=== PATIENT | male | born 1945 | race Caucasian/White ===

== ENCOUNTER 2020-11-11 20:16 | Emergency (ER) | payer OTHER, SELFPAY ==
--- NOTE | ~2020-11-11 | XR_ITS ---
EXAMINATION: XR CHEST CLINICAL INFORMATION: Shortness of breath COMPARISON: Chest radiograph 11/18/2016 TECHNIQUE: Frontal view of the chest was obtained. FINDINGS: Lungs appear hyperexpanded suggesting COPD. There is more hyperlucent seen on the left suggesting worsening bullous changes. No focal consolidations or pleural effusions. No pneumothorax detected. Heart size normal. No evidence of CHF. Compared to the 11/18/2016 study, there has been no significant interval change. XR/XR chest 1V IMPRESSION: COPD. No acute intrathoracic disease
--- NOTE | 2020-11-11 07:44 | ECG_ITS ---
Test Reason : MEDICAL CLEARENCE Blood Pressure : / mmHG Vent. Rate : 097 BPM Atrial Rate : 097 BPM P-R Int : 172 ms QRS Dur : 128 ms QT Int : 382 ms P-R-T Axes : 054 -16 021 degrees QTc Int : 485 ms Normal sinus rhythm Right bundle branch block Abnormal ECG When compared with ECG of 11-NOV-2020 23:39, Right bundle branch block is now Present Minimal criteria for Anterior infarct are no longer Present Referred By: Emelina Reyes Electronically Signed By:DAVID MCMILLAN
[2020-11-11 20:13] VITALS: BP 140/73; PULSE 120; O2SAT 96
[2020-11-11 20:17] VITALS: BP 113/62; PULSE 98; RESP 16; TEMP 36.2; O2SAT 85; BMI 19.3
[2020-11-11 21:56] VITALS: BP 116/68; PULSE 94; RESP 18; TEMP 36.7; O2SAT 97
[2020-11-11 22:29] VITALS: BP 115/69; PULSE 88; RESP 16; O2SAT 94
--- NOTE | 2020-11-11 22:48 | ECG_ITS ---
Test Reason : MEDICAL CLEARENCE Blood Pressure : / mmHG Vent. Rate : 075 BPM Atrial Rate : 075 BPM P-R Int : 132 ms QRS Dur : 068 ms QT Int : 376 ms P-R-T Axes : 099 -02 -06 degrees QTc Int : 419 ms Poor data quality, interpretation may be adversely affected Sinus rhythm with marked sinus arrhythmia Cannot rule out Anterior infarct (cited on or before 11-NOV-2020) Abnormal ECG When compared with ECG of 18-NOV-2016 22:05, Previous ECG has undetermined rhythm, needs review Questionable change in QRS axis Non-specific change in ST segment in Anterior leads T wave inversion now evident in Inferior leads T wave inversion no longer evident in Anterior leads Referred By: Emelina Reyes Electronically Signed By:DAVID MCMILLAN
[2020-11-11 23:10] LABS: MANUAL DIFF FLAG NO
[2020-11-11 23:11] LABS: Basophils Absolute Auto 0.1 X10*3/uL (0.0-0.2); Basophils Percent Auto 0.9 % (0-2); Eosinophils Absolute Auto 0.1 X10*3/uL (0.0-0.4); Eosinophils Percent Auto 1.3 % (0-4); Hematocrit 38.1 % (42-52); Hemoglobin 13.1 g/dl (14.0-18.0); Imm Gran Abs Auto 0.02 X10*3/uL (0.00-0.03); Imm Gran Pct Auto 0.3 % (0.0-0.4); Lymphocytes Absolute Auto 0.8 X10*3/uL (1.2-4.9); Mean Corpuscular HGB Conc 34.4 g/dl (31.0-36.0); Mean Corpuscular Volume 93.2 fL (80-98); Mean Platelet Volume 9.9 fL (9.4-12.4); Monocytes Absolute Auto 0.5 X10*3/uL (0.1-1.2); Monocytes Percent Auto 6.7 % (2-11); Neutrophils Absolute Auto 6.1 X10*3/uL (2.0-8.3); Neutrophils Percent Auto 79.8 % (45-73); Platelet Count 304 X10*3/uL (160-400); Red Blood Count 4.09 X10*6/uL (4.60-5.80); Red Cell Distribution Width 14.9 % (11.0-16.0); White Blood Count 7.6 X10*3/uL (4.8-10.8)
--- NOTE | 2020-11-11 23:12 | ED.GENADULT ---
HPI - General Adult General Chief complaint: Extremity Injury, Lower Stated complaint: left sciatica pain Time Seen by Provider: 11/11/20 22:47 Source: patient Mode of arrival: other (Cane) History of Present Illness HPI narrative: 75-year-old gentleman with history of COPD presents with left worsening sciatica pain that he states radiates down the left posterior lower extremity without associated fever, chills, urinary pain/burning/frequency. Patient states that he is no more short of breath than usual and endorses that he has resumed smoking cigarettes and he has stopped taking his COPD medication. In addition he denies having had his COVID-19 vaccine. He states he is eating and drinking well and his last bowel movement was this morning and denies any urinary symptoms or chest pain. Related Data Allergies Allergy/AdvReac Type Severity Reaction Status Date / Time No Known Allergies Allergy Unverified 12/05/19 19:20 [No Known Allergies*] Review of Systems Review of Systems: Pertinent positives and negatives as stated in HPI 10 point review of systems is otherwise negative. [facility] Past Medical History Source: nursing notes reviewed Medical History COPD (chronic obstructive pulmonary disease) Degeneration of C5-C6 intervertebral disc Social History Social History Advance Directives: No Advance Directives Information Provided: Yes Physical Exam Vital Signs: Vital Signs: Last Vital Signs Temp 98.0 F 11/11/20 21:56 Pulse 81 11/12/20 04:00 Resp 16 11/12/20 04:00 BP 115/69 11/11/20 22:29 Pulse Ox 96 11/12/20 04:00 Body Mass Index 19.3 VITAL SIGNS: Reviewed. GENERAL: Chronically ill, cachectic,, in no acute distress. HEAD: Normocephalic/atraumatic EYES: PERRLA, EOMI OROPHARYNX: no oral lesions noted, posterior pharynx clear LUNGS: Normal breath sounds. No adventitious sounds or accessory muscle use. SpO2<94> on room air CARDIOVASCULAR: Regular rate and rhythm without noted murmurs, no JVD or lower extremity edema. ABDOMEN: Soft, non-tender, non-distended with bowel sounds. MUSCULOSKELETAL: No tenderness, deformities, or effusions noted on gross inspection. EXTREMITIES: No cyanosis, clubbing or edema. SKIN: Inspection of the skin reveals no rashes NEUROLOGIC: Alert and oriented x 4. Strength and sensation to light touch were grossly intact x 4. Course Course Course Narrative: 75-year-old male with history and clinical presentation consistent with sciatica, but will rule out urinary etiologies and although patient was noted to be transiently reading 85% on oxygenation on room air he he has had no further episodes of this and is noted to be non adherent to his treatment plan and states he has no interest in pursuing his medications. Review of all investigations negative for acute findings and on re-evaluation patient has had mild improvement his sciatica pain. All results discussed with him at bedside he will be discharged in the morning due to difficulties with finding a ride. Medical Decision Making Lab Data Result diagrams: 11/11/20 23:03 11/11/20 23:03 Labs: Lab Results 11/11/20 11/11/20 11/11/20 Range/Units 23:03 23:03 23:03 WBC 7.6 (4.8-10.8) X10*3/uL RBC 4.09 L (4.60-5.80) X10*6/uL Hgb 13.1 L (14.0-18.0) g/dl Hct 38.1 L (42-52) % MCV 93.2 (80-98) fL MCH 32.0 (27.0-33.0) pg MCHC 34.4 (31.0-36.0) g/dl RDW 14.9 (11.0-16.0) % Plt Count 304 (160-400) X10*3/uL MPV 9.9 (9.4-12.4) fL Immature Gran % (Auto) 0.3 (0.0-0.4) % Neut % (Auto) 79.8 H (45-73) % Lymph % (Auto) 11.0 L (20-40) % [place] % (Auto) 6.7 (2-11) % Eos % (Auto) 1.3 (0-4) % Baso % (Auto) 0.9 (0-2) % Lymph # (Auto) 0.8 L (1.2-4.9) X10*3/uL [place] # (Auto) 0.5 (0.1-1.2) X10*3/uL Eos # (Auto) 0.1 (0.0-0.4) X10*3/uL Baso # (Auto) 0.1 (0.0-0.2) X10*3/uL Abs Immat Gran (auto) 0.02 (0.00-0.03) X10*3/uL Absolute Neuts (auto) 6.1 (2.0-8.3) X10*3/uL Absolute Nucleated RBC 0.000 (0.0-0.012) X10*3/uL Nucleated RBC % (auto) 0.0 (0.0-0.2) /100WBC PT 11.5 (9.9-13.0) SEC INR 1.0 (0.9-1.1) VBG pH (7.32-7.43) VBG pCO2 mmHg VBG pO2 mmHg VBG HCO3 (22-26) mmol/L VBG O2 Saturation % VBG Base Excess mmol/L Sodium 142 (135-145) mmol/L Potassium 5.0 (3.3-5.1) mmol/L Chloride 107 (96-108) mmol/L Carbon Dioxide 23 (22-29) mmol/L Anion Gap 17 (12-20) BUN 21 H (9-16) mg/dL Creatinine 1.13 (0.5-1.4) mg/dL Estim Creat Clear Calc 44.1 Estimated GFR > 60 Random Glucose 106 (60-115) mg/dL Calcium 9.1 (8.4-10.2) mg/dL Total Bilirubin 0.5 (0.0-1.0) mg/dL AST 33 (5-37) U/L ALT 23 (0-40) U/L Alkaline Phosphatase 54 (39-117) U/L Troponin I High Sens (<3.5-35.0) ng/L Total Protein 6.6 (6.5-8.0) g/dL Albumin 3.9 (3.5-5.0) g/dL Lipase 59 (8-78) U/L COVID-19 (YOSHI) (Negative) COVID-19 Clin Com 11/11/20 11/11/20 11/12/20 Range/Units 23:03 23:09 00:55 WBC (4.8-10.8) X10*3/uL RBC (4.60-5.80) X10*6/uL Hgb (14.0-18.0) g/dl Hct (42-52) % MCV (80-98) fL MCH (27.0-33.0) pg MCHC (31.0-36.0) g/dl RDW (11.0-16.0) % Plt Count (160-400) X10*3/uL MPV (9.4-12.4) fL Immature Gran % (Auto) (0.0-0.4) % Neut % (Auto) (45-73) % Lymph % (Auto) (20-40) % [place] % (Auto) (2-11) % Eos % (Auto) (0-4) % Baso % (Auto) (0-2) % Lymph # (Auto) (1.2-4.9) X10*3/uL [place] # (Auto) (0.1-1.2) X10*3/uL Eos # (Auto) (0.0-0.4) X10*3/uL Baso # (Auto) (0.0-0.2) X10*3/uL Abs Immat Gran (auto) (0.00-0.03) X10*3/uL Absolute Neuts (auto) (2.0-8.3) X10*3/uL Absolute Nucleated RBC (0.0-0.012) X10*3/uL Nucleated RBC % (auto) (0.0-0.2) /100WBC PT (9.9-13.0) SEC INR (0.9-1.1) VBG pH 7.46 H (7.32-7.43) VBG pCO2 39 mmHg VBG pO2 59 mmHg VBG HCO3 27 H (22-26) mmol/L VBG O2 Saturation 86.0 % VBG Base Excess 4.0 mmol/L Sodium (135-145) mmol/L Potassium (3.3-5.1) mmol/L Chloride (96-108) mmol/L Carbon Dioxide (22-29) mmol/L Anion Gap (12-20) BUN (9-16) mg/dL Creatinine (0.5-1.4) mg/dL Estim Creat Clear Calc Estimated GFR Random Glucose (60-115) mg/dL Calcium (8.4-10.2) mg/dL Total Bilirubin (0.0-1.0) mg/dL AST (5-37) U/L ALT (0-40) U/L Alkaline Phosphatase (39-117) U/L Troponin I High Sens 3.6 (<3.5-35.0) ng/L Total Protein (6.5-8.0) g/dL Albumin (3.5-5.0) g/dL Lipase (8-78) U/L COVID-19 (YOSHI) Negative (Negative) COVID-19 Clin Com See Note ECG Data Attestation: I personally reviewed and interpreted this ECG as follows: Prior ECG tracings: available for review (11/18/2016) Interpretation: Poor data quality, sinus rhythm, HR-75, NE/QRS/QTC are within normal limits, no STEMI. Discharge Plan Discharge Clinical Impression: Sciatica Patient Disposition: Home, Self-Care Instructions: Sciatica (ED) Additional Instructions: 1. Resume all home medications as prescribed. 2. Tylenol 1000 mg, orally, every 6 hours as needed for pain control. 3. Ibuprofen 400 mg, orally with milk or food, every 6 hours as needed for pain control. Recommend taking this medication with Tylenol for additional symptom relief. 4. Lidocaine patch, these are available [id number] at every [facility], apply to area of maximal tenderness as directed on the outside packaging. 5. Follow-up with your primary care provider in the next 1-2 days for re-evaluation further outpatient management. Return to the ER for acute worsening of symptoms. Referrals: Physician,Unknown [Primary Care Provider] - 2 days
[2020-11-11 23:13] LABS: VBG HCO3 27 mmol/L (22-26); VBG pCO2 39 mmHg; VBG pH 7.46 (7.32-7.43); VBG pO2 59 mmHg
[2020-11-11 23:13] LABS: Venous Blood Gas Refer to POC result
[2020-11-11 23:16] LABS: Prothrombin Time 11.5 SEC (9.9-13.0)
[2020-11-11] MEDS: Acetaminophen 325 MG TABLET 975 MG PO (23:22)
[2020-11-11] MEDS: Lidocaine 4 % Patch ADH..PATCH 1 PATCH TRANSDERMA (23:23)
[2020-11-11 23:37] LABS: Alanine Aminotransferase 23 U/L (0-40); Albumin Level 3.9 g/dL (3.5-5.0); Alkaline Phosphatase 54 U/L (39-117); Anion Gap 17 (12-20); Aspartate Amino Transferase 33 U/L (5-37); Bilirubin Total 0.5 mg/dL (0.0-1.0); Blood Urea Nitrogen 21 mg/dL (9-16); Calcium 9.1 mg/dL (8.4-10.2); Carbon Dioxide 23 mmol/L (22-29); Chloride 107 mmol/L (96-108); Creatinine Clr Calc Pharmacy 44.1; Estimated Glomerular Filt Rate > 60; Glucose Random 106 mg/dL (60-115); Lipase 59 U/L (8-78); Sodium 142 mmol/L (135-145); Total Protein 6.6 g/dL (6.5-8.0)
[2020-11-11 23:39] LABS: Troponin-I High Sensitivity 3.6 ng/L (<3.5-35.0)
[2020-11-12 01:19] LABS: COVID-19 Test Negative (Negative); IDNOW Serial# 9DD0AD1C
[2020-11-12 04:00] VITALS: PULSE 81; RESP 16; O2SAT 96
[2020-11-12] MEDS: Acetaminophen 325 MG TABLET 650 MG PO (04:42)
--- NOTE | 2020-11-12 06:27 | PC.NURSE ---
PT HELD IN THE ED OVER NIGHT D/T NOT HAVING A RIDE HOME, AND NO MED NECESSITY FOR AN AMBULANCE. AT APPROX 6AM RN TO BEDSIDE TO DISCUSS RIDE HOME. RN ATTEMPTED TO ASSIST W/PT OBTAINING A RIDE, AND PT STATES I DONT NEED SHIT FROM YOU, THIS PLACE SUCKS THIS RN ATTEMPTED TO SEE WHAT ADDITIONAL NEEDS WE CAN MEET BUT PT REFUSED TO RESPOND.
== END 2020-11-12 06:37 | disposition home or self-care (01) ==
PROVIDERS: Emergency Provider Student in an Organized Health Care Education/Training Program
DX: M54.42 Lumbago with sciatica, left side (principal); J44.9 Chronic obstructive pulmonary disease, unspecified; Z20.822 Contact with and (suspected) exposure to COVID-19; Z79.899 Other long term (current) drug therapy
CPT/HCPCS: 36415; 71045; 80053; 82803; 83690; 84484; 85025; 85610; 87635; 93005; 99284

== ENCOUNTER 2021-01-02 15:08 | Emergency (ER) | payer MEDICARE, OTHER, SELFPAY ==
--- NOTE | ~2021-01-02 | CT_ITS ---
EXAMINATION: CT HEAD WITHOUT CONTRAST CLINICAL INFORMATION: History of trauma, brick fell on head. COMPARISON: CT of the head done on 08/20/2018. TECHNIQUE: Contiguous axial imaging was performed from the skull base to vertex without intravenous administration of contrast. This CT examination was performed using dose optimization techniques as appropriate, variously including the following: *Automated exposure control *Adjustment of mA and/or kV according to patient size (this includes techniques or standardized protocols for targeted exams where dose is matched to indication/reason for exam; i.e. extremities or head) *Use of iterative reconstruction technique DLP: 730.2 mGy-cm FINDINGS: There is no evidence of acute intracranial hemorrhage or territorial infarction. No abnormal mass effect or midline shift is seen. [place] to white matter differentiation is well preserved. No extra-axial fluid collections are identified. Persistent stable mild ventriculomegaly is present, unchanged since 08/20/2018. There is mild subcortical and deep periventricular white matter hypodensity present, most consistent with chronic microvascular deep white matter ischemia. The osseous structures and soft tissues are normal. The mastoid air cells and visualized portions of the paranasal sinuses are well aerated. CT/CT head/brain wo con IMPRESSION: No acute intracranial pathology. No significant change since 08/20/2018.
[2021-01-02 15:15] VITALS: BP 118/78; PULSE 132; O2SAT 93
[2021-01-02 15:20] VITALS: BP 138/78; PULSE 102; RESP 18; TEMP 36.9; O2SAT 93; BMI 19.1
[2021-01-02] MEDS: Diphth,Pertus(ACell),Tet Adult 0.5 ML SYRINGE IM (16:07)
--- NOTE | 2021-01-02 16:26 | ED_ITS ---
HPI - Head Injury General Chief complaint: Head Injury Stated complaint: head lac, brick fell on head Time Seen by Provider: 01/02/21 15:23 Source: patient and EMS Mode of arrival: EMS History of Present Illness HPI Narrative: 75-year-old male with a past medical history COPD, degenerative disc disease, presenting to the ED complaining of laceration to posterior scalp s/p brick falling off a building and heading in and head [employer]. Takes ASA occasionally, denies taking today. Denies LOC, headache, nausea, vomiting, numbness, tingling, weakness, vision changes. Tetanus unknown MD Complaint: head injury Related Data Allergies Allergy/AdvReac Type Severity Reaction Status Date / Time No Known Allergies Allergy Unverified 12/05/19 19:20 [No Known Allergies*] Review of Systems Review of Systems: Constitutional: No Fever, No Chills ENT/Mouth: No Ear Pain, No Nasal Congestion, No sore throat, No Rhinorrhea, No Swallowing Difficulty Cardiovascular: No Chest Pain, No SOB Respiratory: No Cough, No Wheezing Gastrointestinal: No Nausea, No Vomiting, No Diarrhea, No Constipation, No Abdominal pain Genitourinary: No Dysuria, No Urinary Frequency, No Hematuria, No Urgency, No Flank Pain Musculoskeletal: No joint pain, No Myalgias, No Joint Swelling Skin: + Skin Lesions, No rash Neuro: No Weakness, No Numbness, No Paresthesias Yes all other systems are reviewed and are negative Neurologic: Denies Abnormal speech present and Denies Sensory deficit (Neuro) [facility] Past Medical History Attestation statement: The following information was validated with the patient. Medical History COPD (chronic obstructive pulmonary disease) Degeneration of C5-C6 intervertebral disc Social History Social History Advance Directives: No Advance Directives Information Provided: No Physical Exam Vital Signs: Vital Signs: Last Vital Signs Temp 98.4 F 01/02/21 15:20 Pulse 102 H 01/02/21 15:20 Resp 18 01/02/21 15:20 BP 138/78 01/02/21 15:20 Pulse Ox 93 01/02/21 15:20 Body Mass Index 19.1 Const: General: cooperative, healthy appearing and no acute distress Orientation/consciousness: patient oriented x3 Limitations: no limitations HENMT: Other: 2 cm flap laceration noted to posterior scalp. Bleeding controlled. No evidence of skull depression Head: No Ponce's sign and No raccoon eyes Ears: hearing grossly normal bilaterally General nose exam: Normal external nose present Face and sinus: Yes normal facial exam Eyes: General: appearance normal, both eyes and all related structures EOM: EOMs intact bilaterally Neck: Other: No midline cervical spinous tenderness Neck: Yes normal visual inspection and Yes no meningeal signs Resp: Effort & Inspection: normal respiratory effort and no respiratory distress Cardio: Rate: regular rate Heart sounds: S1 normal heart sound present and S2 normal heart sound present GI: Inspection: Yes normal to inspection Palpation (GI): Soft to palpation, nontender and no guarding Skin: Rashes: no rashes Neuro: General: patient oriented x3, gait normal, tone normal, moves all extr emities, no meningeal signs, no focal motor deficits and CN's II-XI intact bilaterally Cranial nerves: Yes CN's II-XII intact bilaterally Cognition (Neuro): normal cognition Speech: No Abnormal speech present Gait exam (Neuro): Normal gait present Motor exam (neuro): 5/5 motor strength present throughout Sensory Exam: No Sensory deficit (Neuro) Coordination: [id number] test normal Romberg Test: Negative Extrem: General: Yes normal to inspection Course Course Course Narrative: CT head/brain wo con IMPRESSION: No acute intracranial pathology. No significant change since 08/20/2018. > results discussed with patient including recent signs and symptoms and strict return precautions -Laceration repaired with 3 candie MDM - Head Injury MDM Narrative Medical decision making narrative: 75-year-old male with a past medical history COPD, degenerative disc disease, presenting to the ED complaining of laceration to posterior scalp s/p brick falling off a building and heading in and head [employer]. On exam mildly tachycardic, NAD/well-appearing, no focal neuro deficits. Laceration noted to posterior scalp. Concern for ICH. Rule out fracture. Plan: Head CT, update tetanus, repair laceration Medical Records Attestation: I reviewed the patient's medical records. Lab Data Attestation: I reviewed the patient's lab results. Procedures Laceration Laceration 1: Site: scalp Side (If applicable): left Size (cm): 2 Description: flap Depth: simple, single layer Number of sutures: 3 (candie) Discharge Plan Discharge Clinical Impression: Closed head injury Qualifiers: Encounter type: initial encounter Qualified Code(s): S09.90XA - Unspecified injury of head, initial encounter Laceration of scalp Qualifiers: Encounter type: initial encounter Qualified Code(s): S01.01XA - Laceration without foreign body of scalp, initial encounter Patient Disposition: Home, Self-Care Instructions: Laceration (ED), Head Injury (ED) Additional Instructions: Your head CT was unremarkable You have candie in her head, return to any emergency department or urgent care in 7-10 days to have them taken out Keep dry and clean, do not scrub, your tetanus was updated today If the area begins look infected, is red, there is drainage please return to the ED Referrals: Physician,Clemente J [Primary Care Provider] - 1 week (Return to any emergency department or urgent care in 7-10 days to have your candie taken out)
== END 2021-01-02 16:45 | disposition home or self-care (01) ==
PROVIDERS: Emergency Provider Emergency Medicine
DX: S01.01XA Laceration without foreign body of scalp, initial encounter (principal); J44.9 Chronic obstructive pulmonary disease, unspecified; W20.8XXA Other cause of strike by thrown, projected or falling object, initial encounter; Y93.9 Activity, unspecified; Y92.410 Unspecified street and highway as the place of occurrence of the external cause; Y99.9 Unspecified external cause status
CPT/HCPCS: 12001; 70450; 90471; 90715; 99283; 99284

== ENCOUNTER 2022-06-15 11:50 | Outpatient (REF) | payer MEDICARE, MEDICAID, OTHER, SELFPAY ==
[2022-06-15 13:07] LABS: OBS Int Ctl Valid YES; OBS1 NEGATIVE (NEGATIVE)
== END 2022-06-15 11:51 | disposition home or self-care (01) ==
LOC: HO.HSH2W 11:50
PROVIDERS: Visit Provider Internal Medicine
DX: D64.9 Anemia, unspecified (principal)
CPT/HCPCS: 82272

== ENCOUNTER 2022-06-16 07:00 | Outpatient (REF) | payer MEDICARE, MEDICAID, OTHER, SELFPAY ==
[2022-06-16 08:32] LABS: MANUAL DIFF FLAG NO
[2022-06-16 08:33] LABS: Basophils Absolute Auto 0.1 X10*3/uL (0.0-0.2); Basophils Percent Auto 1.4 % (0-2); Eosinophils Absolute Auto 0.3 X10*3/uL (0.0-0.4); Hematocrit 35.7 % (42.0-52.0); Imm Gran Abs Auto 0.01 X10*3/uL (0.00-0.03); Imm Gran Pct Auto 0.2 % (0.0-0.4); Lymphocytes Percent Auto 15.3 % (20-40); Mean Corpuscular HGB Conc 33.6 g/dl (31.0-36.0); Mean Corpuscular Hemoglobin 29.5 pg (27.0-33.0); Mean Corpuscular Volume 87.7 fL (80.0-98.0); Mean Platelet Volume 10.6 fL (9.4-12.4); Monocytes Absolute Auto 0.5 X10*3/uL (0.1-1.2); Monocytes Percent Auto 7.6 % (2-11); Neutrophils Absolute Auto 4.6 x10*3/uL (2.0-8.3); Neutrophils Percent Auto 71.5 % (45-73); Platelet Count 278 X10*3/uL (160-400); Red Blood Count 4.07 X10*6/uL (4.60-5.80); White Blood Count 6.4 X10*3/uL (4.8-10.8)
[2022-06-16 09:05] LABS: Alanine Aminotransferase 10 U/L (0-40); Albumin Level 3.7 g/dL (3.5-5.0); Alkaline Phosphatase 47 U/L (39-117); Anion Gap 11 (12-20); Aspartate Amino Transferase 14 U/L (5-37); Bilirubin Total 0.4 mg/dL (0.0-1.0); Blood Urea Nitrogen 19 mg/dL (9-16); Calcium 8.5 mg/dL (8.4-10.2); Carbon Dioxide 24 mmol/L (22-29); Chloride 109 mmol/L (96-108); Estimated Glomerular Filt Rate > 60; Glucose Fasting 81 mg/dL (60-99); Iron 56 mcg/dL (45-160); Percent Iron Saturation 22 % (15-50); Potassium 4.3 mmol/L (3.3-5.1); Sodium 140 mmol/L (135-145); Total Iron Binding Capacity 250 mcg/dL (228-428); Unsaturated Iron Binding 194 ug/dL
[2022-06-16 09:35] LABS: Ferritin 69 ng/mL (20-250); Folate 11.8 ng/mL (> or = 4.0); Thyroid Stimulating Hormone 1.35 uIU/mL (0.32-4.0); Vitamin B12 376 pg/mL (200-900)
[2022-06-19 05:08] LABS: TS Negative Control Passed; TS Panel A 0; TS Panel B 0; TS Positive Control Passed; TSpotTB Negative (Negative)
== END 2022-06-16 07:01 | disposition home or self-care (01) ==
LOC: HO.HSH2W 07:00
PROVIDERS: Visit Provider Internal Medicine
DX: J44.9 Chronic obstructive pulmonary disease, unspecified (principal); D64.9 Anemia, unspecified; E46 Unspecified protein-calorie malnutrition
CPT/HCPCS: 36415; 80053; 82607; 82728; 82746; 83540; 84443; 85025; 86481

== ENCOUNTER 2022-06-17 05:32 | Outpatient (REF) | payer MEDICARE, MEDICAID, OTHER, SELFPAY ==
[2022-06-17 11:33] LABS: Cortisol Random 15.3 ug/dL
== END 2022-06-17 05:33 | disposition home or self-care (01) ==
LOC: HO.HSH2W 05:32
PROVIDERS: Visit Provider Internal Medicine
DX: I95.1 Orthostatic hypotension (principal)
CPT/HCPCS: 36415; 82533

== ENCOUNTER 2022-08-22 06:31 | Outpatient (REF) | payer MEDICARE, MEDICAID, OTHER, SELFPAY ==
[2022-08-22 06:36] LABS: MANUAL DIFF FLAG NO
[2022-08-22 07:03] LABS: Iron 76 mcg/dL (45-160); Percent Iron Saturation 32 % (15-50); Total Iron Binding Capacity 240 mcg/dL (228-428); Unsaturated Iron Binding 164 ug/dL
[2022-08-22 07:12] LABS: Basophils Absolute Auto 0.1 X10*3/uL (0.0-0.2); Basophils Percent Auto 1.2 % (0-2); Eosinophils Absolute Auto 0.2 X10*3/uL (0.0-0.4); Eosinophils Percent Auto 3.8 % (0-4); Hematocrit 35.5 % (42.0-52.0); Hemoglobin 11.9 g/dl (14.0-18.0); Imm Gran Abs Auto 0.02 X10*3/uL (0.00-0.03); Imm Gran Pct Auto 0.3 % (0.0-0.4); Lymphocytes Absolute Auto 1.1 X10*3/uL (1.2-4.9); Lymphocytes Percent Auto 17.6 % (20-40); Mean Corpuscular HGB Conc 33.5 g/dl (31.0-36.0); Mean Corpuscular Hemoglobin 29.2 pg (27.0-33.0); Mean Corpuscular Volume 87.2 fL (80.0-98.0); Mean Platelet Volume 10.3 fL (9.4-12.4); Monocytes Absolute Auto 0.5 X10*3/uL (0.1-1.2); Monocytes Percent Auto 7.9 % (2-11); Neutrophils Absolute Auto 4.1 x10*3/uL (2.0-8.3); Neutrophils Percent Auto 69.2 % (45-73); Platelet Count 302 X10*3/uL (160-400); Red Blood Count 4.07 X10*6/uL (4.60-5.80); Red Cell Distribution Width 13.9 % (11.0-16.0)
[2022-08-22 17:33] LABS: OBS Int Ctl Valid YES; OBS1 NEGATIVE (NEGATIVE)
== END 2022-08-22 06:32 | disposition home or self-care (01) ==
LOC: HO.HSH2W 06:31
PROVIDERS: Visit Provider Internal Medicine
DX: D64.9 Anemia, unspecified (principal)
CPT/HCPCS: 36415; 82272; 83540; 85025

== ENCOUNTER 2022-08-29 14:03 | Outpatient (REF) | payer MEDICARE, MEDICAID, OTHER, SELFPAY ==
[2022-08-29 14:22] LABS: OBS Int Ctl Valid YES; OBS1 NEGATIVE (NEGATIVE)
== END 2022-08-29 14:04 | disposition home or self-care (01) ==
LOC: HO.HSH2W 14:03
PROVIDERS: Visit Provider Internal Medicine
DX: D64.9 Anemia, unspecified (principal)
CPT/HCPCS: 82272

== ENCOUNTER 2022-09-02 05:52 | Outpatient (REF) | payer MEDICARE, MEDICAID, OTHER, SELFPAY ==
[2022-09-02 06:55] LABS: MANUAL DIFF FLAG NO
[2022-09-02 06:56] LABS: Basophils Absolute Auto 0.1 X10*3/uL (0.0-0.2); Basophils Percent Auto 1.2 % (0-2); Eosinophils Absolute Auto 0.2 X10*3/uL (0.0-0.4); Eosinophils Percent Auto 3.6 % (0-4); Hematocrit 33.7 % (42.0-52.0); Hemoglobin 11.5 g/dl (14.0-18.0); Imm Gran Abs Auto 0.01 X10*3/uL (0.00-0.03); Imm Gran Pct Auto 0.2 % (0.0-0.4); Lymphocytes Percent Auto 16.9 % (20-40); Mean Corpuscular HGB Conc 34.1 g/dl (31.0-36.0); Mean Corpuscular Hemoglobin 29.7 pg (27.0-33.0); Mean Corpuscular Volume 87.1 fL (80.0-98.0); Mean Platelet Volume 10.3 fL (9.4-12.4); Monocytes Absolute Auto 0.5 X10*3/uL (0.1-1.2); Neutrophils Absolute Auto 4.2 x10*3/uL (2.0-8.3); Neutrophils Percent Auto 70.1 % (45-73); Platelet Count 268 X10*3/uL (160-400); Red Blood Count 3.87 X10*6/uL (4.60-5.80); Red Cell Distribution Width 14.1 % (11.0-16.0)
== END 2022-09-02 05:53 | disposition home or self-care (01) ==
LOC: HO.HSH2W 05:52
PROVIDERS: Visit Provider Internal Medicine
DX: D64.9 Anemia, unspecified (principal)
CPT/HCPCS: 36415; 85025

== ENCOUNTER 2023-02-07 05:07 | Outpatient (REF) | payer MEDICARE, MEDICAID, OTHER, SELFPAY ==
[2023-02-07 06:25] LABS: MANUAL DIFF FLAG NO
[2023-02-07 06:44] LABS: Alanine Aminotransferase 12 U/L (0-40); Albumin Level 3.6 g/dL (3.5-5.0); Alkaline Phosphatase 56 U/L (39-117); Anion Gap 10 (12-20); Aspartate Amino Transferase 15 U/L (5-37); Basophils Absolute Auto 0.1 X10*3/uL (0.0-0.2); Basophils Percent Auto 1.3 % (0-2); Bilirubin Total 0.3 mg/dL (0.0-1.0); Blood Urea Nitrogen 18 mg/dL (9-16); Calcium 8.7 mg/dL (8.4-10.2); Carbon Dioxide 24 mmol/L (22-29); Chloride 109 mmol/L (96-108); Eosinophils Absolute Auto 0.2 X10*3/uL (0.0-0.4); Eosinophils Percent Auto 3.1 % (0-4); Estimated Glomerular Filt Rate > 60; Glucose Fasting 79 mg/dL (60-99); Hematocrit 33.6 % (42.0-52.0); Hemoglobin 11.2 g/dl (14.0-18.0); Imm Gran Abs Auto 0.03 X10*3/uL (0.00-0.03); Imm Gran Pct Auto 0.5 % (0.0-0.4); Lymphocytes Percent Auto 15.9 % (20-40); Mean Corpuscular HGB Conc 33.3 g/dl (31.0-36.0); Mean Corpuscular Hemoglobin 29.5 pg (27.0-33.0); Mean Corpuscular Volume 88.4 fL (80.0-98.0); Mean Platelet Volume 10.5 fL (9.4-12.4); Monocytes Absolute Auto 0.4 X10*3/uL (0.1-1.2); Monocytes Percent Auto 7.1 % (2-11); Neutrophils Absolute Auto 4.5 x10*3/uL (2.0-8.3); Neutrophils Percent Auto 72.1 % (45-73); Platelet Count 290 X10*3/uL (160-400); Red Cell Distribution Width 13.8 % (11.0-16.0); Sodium 139 mmol/L (135-145); Total Protein 6.4 g/dL (6.5-8.0); White Blood Count 6.2 X10*3/uL (4.8-10.8)
== END 2023-02-07 05:08 | disposition home or self-care (01) ==
LOC: HO.HSH2W 05:07
PROVIDERS: Visit Provider Internal Medicine
DX: J44.9 Chronic obstructive pulmonary disease, unspecified (principal); D64.9 Anemia, unspecified; H26.9 Unspecified cataract
CPT/HCPCS: 36415; 80053; 85025

== ENCOUNTER 2023-04-06 04:57 | Outpatient (REF) | payer MEDICARE, MEDICAID, SELFPAY ==
[2023-04-06 05:45] LABS: MANUAL DIFF FLAG NO
[2023-04-06 05:50] LABS: Basophils Absolute Auto 0.1 X10*3/uL (0.0-0.2); Basophils Percent Auto 1.2 % (0-2); Eosinophils Absolute Auto 0.3 X10*3/uL (0.0-0.4); Eosinophils Percent Auto 3.9 % (0-4); Hematocrit 33.4 % (42.0-52.0); Hemoglobin 11.3 g/dl (14.0-18.0); Imm Gran Abs Auto 0.03 X10*3/uL (0.00-0.03); Imm Gran Pct Auto 0.5 % (0.0-0.4); Lymphocytes Absolute Auto 1.3 X10*3/uL (1.2-4.9); Lymphocytes Percent Auto 19.4 % (20-40); Mean Corpuscular HGB Conc 33.8 g/dl (31.0-36.0); Mean Corpuscular Hemoglobin 29.7 pg (27.0-33.0); Mean Corpuscular Volume 87.9 fL (80.0-98.0); Mean Platelet Volume 10.3 fL (9.4-12.4); Monocytes Absolute Auto 0.5 X10*3/uL (0.1-1.2); Monocytes Percent Auto 7.8 % (2-11); Neutrophils Absolute Auto 4.3 x10*3/uL (2.0-8.3); Neutrophils Percent Auto 67.2 % (45-73); Platelet Count 273 X10*3/uL (160-400); Red Cell Distribution Width 14.6 % (11.0-16.0); White Blood Count 6.4 X10*3/uL (4.8-10.8)
== END 2023-04-06 04:58 | disposition home or self-care (01) ==
LOC: HO.HSH2W 04:57
PROVIDERS: Visit Provider Internal Medicine
DX: D64.9 Anemia, unspecified (principal); I95.9 Hypotension, unspecified
CPT/HCPCS: 36415; 85025

== ENCOUNTER 2023-08-11 05:18 | Outpatient (REF) | payer MEDICARE, MEDICAID, SELFPAY ==
[2023-08-11 06:09] LABS: MANUAL DIFF FLAG NO
[2023-08-11 06:19] LABS: Basophils Absolute Auto 0.1 X10*3/uL (0.0-0.2); Basophils Percent Auto 1.8 % (0-2); Eosinophils Absolute Auto 0.3 X10*3/uL (0.0-0.4); Eosinophils Percent Auto 4.6 % (0-4); Hematocrit 37.8 % (42.0-52.0); Hemoglobin 12.5 g/dl (14.0-18.0); Imm Gran Abs Auto 0.03 X10*3/uL (0.00-0.03); Imm Gran Pct Auto 0.4 % (0.0-0.4); Immature Retic Fraction 14.4 % (2.3-13.4); Lymphocytes Absolute Auto 1.2 X10*3/uL (1.2-4.9); Lymphocytes Percent Auto 17.4 % (20-40); Mean Corpuscular HGB Conc 33.1 g/dl (31.0-36.0); Mean Corpuscular Hemoglobin 29.6 pg (27.0-33.0); Mean Corpuscular Volume 89.6 fL (80.0-98.0); Mean Platelet Volume 10.4 fL (9.4-12.4); Monocytes Absolute Auto 0.5 X10*3/uL (0.1-1.2); Monocytes Percent Auto 6.7 % (2-11); Neutrophils Absolute Auto 4.6 x10*3/uL (2.0-8.3); Neutrophils Percent Auto 69.1 % (45-73); Platelet Count 314 X10*3/uL (160-400); Red Blood Count 4.22 X10*6/uL (4.60-5.80); Red Cell Distribution Width 13.9 % (11.0-16.0); Retic HGB Equivalent 32.6 pg (30.0-35.0); Reticulocyte Percent 1.6 % (0.5-1.8); Reticulocytes Absolute 0.068 X10*6/uL (0.026-0.095); White Blood Count 6.7 X10*3/uL (4.8-10.8)
[2023-08-11 06:36] LABS: Iron 54 mcg/dL (45-160); Percent Iron Saturation 21 % (15-50); Total Iron Binding Capacity 258 mcg/dL (228-428); Unsaturated Iron Binding 204 ug/dL
[2023-08-11 06:51] LABS: Ferritin 124 ng/mL (20-250)
[2023-08-11 07:04] LABS: Folate 9.9 ng/mL (> or = 4.0)
[2023-08-16 15:03] LABS: Transglutaminase IgA <1.0 U/mL
== END 2023-08-11 05:19 | disposition home or self-care (01) ==
LOC: HO.HSH2W 05:18
PROVIDERS: Visit Provider Internal Medicine
DX: R63.4 Abnormal weight loss (principal); R19.7 Diarrhea, unspecified; D64.9 Anemia, unspecified
CPT/HCPCS: 36415; 82728; 82746; 83540; 85025; 85045; 86364

== ENCOUNTER 2023-11-10 06:36 | Outpatient (REF) | payer MEDICARE, MEDICAID, SELFPAY ==
[2023-11-10 06:39] LABS: MANUAL DIFF FLAG NO
[2023-11-10 07:13] LABS: Basophils Percent Auto 0.7 % (0-2); Eosinophils Percent Auto 0.5 % (0-4); Hematocrit 35.7 % (42.0-52.0); Hemoglobin 12.1 g/dl (14.0-18.0); Imm Gran Abs Auto 0.02 X10*3/uL (0.00-0.03); Imm Gran Pct Auto 0.4 % (0.0-0.4); Lymphocytes Absolute Auto 0.8 X10*3/uL (1.2-4.9); Lymphocytes Percent Auto 14.8 % (20-40); Mean Corpuscular HGB Conc 33.9 g/dl (31.0-36.0); Mean Corpuscular Hemoglobin 29.6 pg (27.0-33.0); Mean Corpuscular Volume 87.3 fL (80.0-98.0); Mean Platelet Volume 10.4 fL (9.4-12.4); Monocytes Absolute Auto 0.8 X10*3/uL (0.1-1.2); Monocytes Percent Auto 14.5 % (2-11); Neutrophils Absolute Auto 3.9 x10*3/uL (2.0-8.3); Neutrophils Percent Auto 69.1 % (45-73); Platelet Count 239 X10*3/uL (160-400); Red Blood Count 4.09 X10*6/uL (4.60-5.80); White Blood Count 5.6 X10*3/uL (4.8-10.8)
[2023-11-10 07:45] LABS: Anion Gap 12 (12-20); Blood Urea Nitrogen 16 mg/dL (9-16); Calcium 8.9 mg/dL (8.4-10.2); Carbon Dioxide 23 mmol/L (22-29); Chloride 108 mmol/L (96-108); Estimated Glomerular Filt Rate > 60; Glucose Random 86 mg/dL (60-115); Potassium 3.9 mmol/L (3.3-5.1); Sodium 139 mmol/L (135-145)
== END 2023-11-10 06:37 | disposition home or self-care (01) ==
LOC: HO.HSH2W 06:36
PROVIDERS: Visit Provider Internal Medicine Interventional Cardiology
DX: U07.1 COVID-19 (principal)
CPT/HCPCS: 36415; 80048; 85025

== ENCOUNTER 2025-02-28 07:40 | Outpatient (REF) | payer MEDICARE, SELFPAY ==
[2025-02-28 07:47] LABS: Hematocrit 36.3 % (42.0-52.0); Hemoglobin 12.1 g/dl (14.0-18.0); Imm Gran Abs Auto 0.03 X10*3/uL (0.00-0.03); Imm Gran Pct Auto 0.6 % (0.0-0.4); Lymphocytes Absolute Auto 0.8 X10*3/uL (1.2-4.9); MANUAL DIFF FLAG NO; Mean Corpuscular HGB Conc 33.3 g/dl (31.0-36.0); Mean Corpuscular Hemoglobin 29.7 pg (27.0-33.0); Mean Corpuscular Volume 89.2 fL (80.0-98.0); NRBC Abs Auto 0.000 X10*3/uL (0.0-0.012); NRBC Pct Auto 0.0 /100WBC (0.0-0.2); Platelet Count 286 X10*3/uL (160-400); Red Blood Count 4.07 X10*6/uL (4.60-5.80); White Blood Count 5.3 X10*3/uL (4.8-10.8)
--- OUTSIDE RECORDS SUMMARY | 2025-02-28 07:57 | XMS_ITS | Clinical Summary ---
Author Organization [facility] Address [address] [place] [address] Care Team Providers Care Customer Advisor Name Role Phone Unavailable Primary Care Provider Unavailabl e Allergies No known active allergies Medications albuterol 108 (90 Base) MCG/ACT inhaler Inhale 2 puffs every 6 (six) hours if needed for wheezing. Active tiotropium (Spiriva) [address] 1 capsule into inhaler and inhale in the morning. Active bisacodyl (Fleet Bisacodyl) 10 MG/30ML enema Insert 10 mg into the rectum 1 (one) time. Active magnesium oxide (Mag-Ox) 400 mg tablet 400 mg in the morning. Active lactase (Lactaid) 3000 units tablet Take 3,000 Units by mouth with breakfast, with lunch, and with evening meal. Active oseltamivir (Tamiflu) 75 MG capsule Active carboxymethylce llulose (Refresh Plus) 0.5 % ophthalmic solution 1 drop if needed for dry eyes. Active loperamide (Imodium A-D) 2 MG tablet Take 2 mg by mouth if needed in the morning, at noon, in the evening, and at bedtime for diarrhea. Active acetaminophen (Tylenol) 325 MG tablet Take 325 mg by mouth every 4 (four) hours if needed for fever, headaches, moderate pain or mild pain. Active polyethylene glycol, PEG, 3350 (Miralax) 17 g packet Take 17 g by mouth if needed (constipation ). Active carboxymethylce llulose (Refresh Plus) 0.5 % ophthalmic solution 1 drop if needed for dry eyes. Active Active Problems Problem Noted Date Diagnosed Date Acute bronchitis 08/28/2024 Alcohol dependence 08/28/2024 Allergic rhinitis 08/28/2024 Anorexia 08/28/2024 Cataract 08/28/2024 Chronic obstructive pulmonary disease 08/28/2024 Cough 08/28/2024 Encounter for fitting and adjustment of hearing aid 08/28/2024 Hearing loss 08/28/2024 Housing lack 08/28/2024 Chronic insomnia 08/28/2024 Insomnia, unspecified 08/28/2024 Intestinal obstruction 08/28/2024 Low back pain 08/28/2024 Cervicalgia 08/28/2024 Neck pain 08/28/2024 Nonexudative age-related mac ular degeneration, bilateral, early dry stage 08/28/2024 Osteoarthritis 08/28/2024 Overview (08/28/2024): Sep 24, 2018 Entered By: ANG LLAMAS Comment: bilat hips and knees Peptic ulcer without hemorrh age, perforation, or obstruction 08/28/2024 Encounters Date Type Department Care Team Description 01/29/2025 11:00 AM EST Office Visit [facility] [address] [place] [id number] Milo Carroll DMD from Last 3 Months Social History Tobacco Use Types Packs/Day Years Used Date Smoking Tobacco: Former Cigarettes 1 40 Passive Smoke Exposure: Never Smokeless Tobacco: Never Tobacco Cessation:Counseling Given: Not Answered Alcohol Use Standard Drinks/Week Comments Defer 0 (1 standard drink = 0.6 oz pur e alcohol) Sex and Gender Information Value Date Recorded Sex Assigned at Male 01/17/2022 10:29 AM EDT Legal Sex Male 10:29 AM EDT Gender Identity Male 09/26/2022 3:22 PM EDT Sexual Orientation Straight 09/26/2022 3: 22 PM EDT Last Filed Vital Signs Vital Sign Reading Time Taken Comments Blood Pressure 118/76 08/09/2024 10:07 AM EDT Pulse 69 08/09/2024 10:07 AM EDT Temperature - - Respiratory Rate - - Oxygen Saturation - - Inhaled Oxygen Concentration - - Weight - - Height - - Body Mass Index - - Plan of Treatment Health Maintenance Due Date Last Done Comments Dental X-Ray: Bitewings 1946 Dental X-Ray: Full Mouth 1946 Depression Screening 1946 Lipid Panel 1946 SDOH Screening 1946 Alcohol/Substance Use Screening 1958 Hepatitis C Screening 1964 Zoster Vaccines (1 of 2) 1996 Hepatitis B Vaccines (3 of 3 - Hep B Twinrix 3-dose series) 07/30/2019 02/28/2019, 09/24/2018 RSV Patients and Patients Aged 60 years or older (1 - 1-dose 75+ series) 2021 Dental Oral Exam 08/29/2024 02/28/2024, 09/26/2022 DTaP/Tdap/Td Vaccines (2 - Tdap) 11/10/2024 11/10/2014 COVID-19 Vaccine (1 - 2024-2 6 season) 2024 Influenza Vaccine (#1) 2024 Dental Prophylaxis 02/10/2025 08/09/2024, 10/05/2022 Tobacco Screening 01/29/2026 01/29/2025 Hepatitis A Vaccines Aged Out 02/28/2019, 09/24/2018 No longer eligible based on patient's age to complete this topic Pneumococcal Vaccine: 50+ Years Completed 09/26/2022, 09/29/2017, 11/10/2014 HIB Vaccines Aged Out No longer eligi ble based on patient's age to complete this topic HPV Vaccines Aged Out No longer eligi ble based on patient's age to complete this topic IPV Vaccines Aged Out No longer eligi ble based on patient's age to complete this topic Meningococcal B Vaccine Aged Out No l onger eligible based on patient's age to complete this topic Meningococcal Vaccine Aged Out No val johana eligible based on patient's age to complete this topic RSV under 20 months Aged Out No longe r eligible based on patient's age to complete this topic Rotavirus Vaccines Aged Out No longer eligible based on patient's age to complete this topic Procedures Procedure Name Priority Date/Time Associated Diagnosis Comments NO CHARGE VISIT Routine 01/29/2025 11:00 AM EST PROPHYLAXIS - ADULT Routine 08/09/2024 9 :45 AM EDT COMPREHENSIVE ORAL EVALUATION - NEW OR ESTABLISHED PATIENT Routine 02/28/2024 3:00 PM EST from Last 3 Months or Most Recently Relevant to Health Maintenance
== END 2025-02-28 07:41 | disposition home or self-care (01) ==
LOC: HO.HSH 07:40
PROVIDERS: Visit Provider Internal Medicine
DX: I95.1 Orthostatic hypotension (principal); D64.9 Anemia, unspecified
CPT/HCPCS: 36415; 82533; 85025